=== PATIENT | female | born 1990 | race Two or more races ===

== ENCOUNTER 2021-01-24 16:02 | Emergency (ER) | payer OTHER ==
[~2021-01-24] VITALS: Ht 157.5 cm; Wt 44.0 kg
[2021-01-24 16:57] LABS: BILIRUBIN,URINE NEGATIVE (NEGATIVE); COLOR,URINE YELLOW (YELLOW); LEUKOCYTE ESTERASE ,URINE NEGATIVE (NEGATIVE); NITRITE, URINE NEGATIVE (NEGATIVE); PROTEIN,URINE TRACE mg/dl (NEGATIVE); UGLUCOSE NEGATIVE (NEGATIVE); UROBILINOGEN,URINE 0.2 EU/dL (0.2)
[2021-01-24 17:02] LABS: PH,URINE >8.5 (5.0-8.0)
[2021-01-24 17:17] LABS: BACTERIA,URINE 1+ /HPF (None Seen); MUCUS,URINE Few /LPF (None Seen); RBC,URINE 0-2 /HPF (0-2); WBC,URINE 0-2 /HPF (0-3)
--- NOTE | 2021-01-24 19:29 | NUR ---
Bibs for c/o urinary frequency, chills, and dysuria since . No bladder distention noted. Will continue to monitor the patient.
--- NOTE | 2021-01-24 20:05 | NUR ---
URINE COLLECTED AND SENT TO LAB
[2021-01-24] MEDS ORDERED: HYDROCODONE/APAP 5/325MG TABLET PO ONE (20:30)
[2021-01-24] MEDS ORDERED: METR-147 PO (20:37)
[2021-01-24] MEDS ORDERED: HYDROCODONE/APAP 5/325MG TABLET ONE (20:44)
--- NOTE | 2021-01-24 20:45 | NUR ---
Patient discharged to home in stable condition. Written and verbal after care instructions given. Patient verbalizes understanding of instruction. pT ambulatory with a steady gait
[2021-01-24 20:49] VITALS: BP 107/70
== END 2021-01-24 20:45 | disposition home or self-care (01) ==
LOC: ER 16:09
DX: N76.0 Acute vaginitis (principal)
CPT/HCPCS: 81001; 84703; 87210; 99284; A6403